=== PATIENT | female | born 1940 | race Caucasian/White ===

== ENCOUNTER 2016-03-14 16:15 | Inpatient (IN) | payer MEDICARE, OTHER ==
[2016-03-14] MEDS ORDERED: OCUVITE1 TA1 PO (17:27)
[2016-03-14] MEDS ORDERED: COLACE 100100 MG/CAP PO (17:27)
[2016-03-14] MEDS ORDERED: ZYPREXA2.5 MG PO ×2 (17:27→17:32)
[2016-03-14] MEDS ORDERED: ASPIRIN E.C. 8181 MG PO (17:28)
[2016-03-14] MEDS ORDERED: ALEVE 220MG220 MG PO (17:28)
[2016-03-14] MEDS ORDERED: FERROUS GL325 MG/TAB PO (17:30)
[2016-03-14] MEDS ORDERED: ZOCOR 10MG10 MG PO (17:30)
[2016-03-14] MEDS ORDERED: MIRALAX PA17 GM/Dose PO (17:31)
[2016-03-14] MEDS ORDERED: NORVASC 5MG5 MG/TAB PO (17:32)
[2016-03-14] MEDS ORDERED: TRAVATAN Z 2.52.5 ML OU (17:33)
[2016-03-14] MEDS ORDERED: INDERAL 20MG20 MG PO (17:35)
[2016-03-14] MEDS ORDERED: ARICEPT10 MG PO (17:35)
[2016-03-14] MEDS ORDERED: ATIVAN 0.50.5 MG/TAB PO (17:36)
[2016-03-14] MEDS ORDERED: NORCO 325 MG-51 TAB PO (17:36)
[2016-03-14] MEDS ORDERED: MYCOSTATIN100000 U/G TP (17:37)
[2016-03-14 17:44] VITALS: BP 169/69; PULSE 91; TEMP 98.4
[2016-03-14 17:46] VITALS: BP 169/69; PULSE 91; TEMP 98.4
[2016-03-14 17:58] LABS: BASO # 0.1 (0.0-0.2); BASO % 0.4 % (0.0-2.0); EOS % 0.2 % (0-4.0); GRAN # 10.4 (1.4-6.5); HEMATOCRIT 38.8 % (37.0-47.0); HEMOGLOBIN 13.2 g/dl (12.5-16.0); LYMPH # 1.2 (1.2-3.4); LYMPH % 9.6 % (20.0-51.0); MEAN CELL VOLUME 85 fl (80.0-100.0); MEAN CORPUSCULAR HEMOGLOBIN 29 pg (27.0-31.0); MEAN CORPUSCULAR HGB CONC 34 g/dl (33.0-37.0); MEAN PLATELET VOLUME 9.3 fl (7.4-10.4); MONO # 0.4 (0.1-0.6); MONO % 3.6 % (1.7-9.3); PLATELET COUNT 237 K/mm3 (130-400); RED BLOOD COUNT 4.55 M/mm3 (4.10-5.30); REDCELL DISTRIBUTION WIDTH-CV 14.7 % (11.5-14.5); WHITE BLOOD COUNT 12.1 K/mm3 (4.8-10.8)
[2016-03-14 18:04] LABS: INR 1.1 (0.8-3.0); PROTHROMBIN TIME 11.8 SECONDS (9.7-12.8)
[2016-03-14 18:11] LABS: ADJUSTED CALCIUM 9.6 mg/dL (8.4-10.2); ALBUMIN 4.1 gm/dL (3.5-5.0); BILIRUBIN,TOTAL 0.9 mg/dL (0.0-1.0); CALCIUM 9.7 mg/dL (8.4-10.2); CREATININE, serum 0.99 mg/dL (0.52-1.25); POTASSIUM 3.8 mmol/L (3.4-5.0); TOTAL PROTEIN 7.3 gm/dL (6.4-8.2)
[2016-03-14 18:51] LABS: PH 6 (5-8); SQUAMOUS EPITHELIAL 0-2 /hpf; URINE APPEARANCE Clear; URINE BACTERIA None Seen /hpf; URINE BILIRUBIN Negative (NEGATIVE); URINE BLOOD 1+ (NEGATIVE); URINE COLOR Yellow; URINE GLUCOSE Negative (NEGATIVE); URINE KETONE 1+ (NEGATIVE); URINE UROBILINOGEN Negative (NEGATIVE); URINE WBC 0-2 /hpf
[2016-03-14 21:16] VITALS: BP 127/72; PULSE 85; TEMP 97.7
[2016-03-15 01:07] VITALS: BP 97/65; PULSE 71; TEMP 97.2
[2016-03-15 04:32] VITALS: BP 124/67; PULSE 79; TEMP 98.5
[2016-03-15 09:06] LABS: CALCIUM 9.1 mg/dL (8.4-10.2); CREATININE, serum 1.27 mg/dL (0.52-1.25); POTASSIUM 3.6 mmol/L (3.4-5.0)
[2016-03-15 09:17] VITALS: BP 118/66; PULSE 80; TEMP 99.3
[2016-03-15 09:44] LABS: BASO % 0.5 % (0.0-2.0); EOS # 0.1 (0.0-0.7); EOS % 1.7 % (0-4.0); GRAN # 5.6 (1.4-6.5); GRAN % 70.6 % (42.2-75.2); LYMPH # 1.7 (1.2-3.4); LYMPH % 21.5 % (20.0-51.0); MEAN CELL VOLUME 89 fl (80.0-100.0); MEAN CORPUSCULAR HGB CONC 33 g/dl (33.0-37.0); MEAN PLATELET VOLUME 9.4 fl (7.4-10.4); MONO # 0.4 (0.1-0.6); MONO % 5.6 % (1.7-9.3); PLATELET COUNT 191 K/mm3 (130-400); RED BLOOD COUNT 3.55 M/mm3 (4.10-5.30); WHITE BLOOD COUNT 7.9 K/mm3 (4.8-10.8)
[2016-03-15 09:50] LABS: HEMATOCRIT 31.4 % (37.0-47.0); HEMOGLOBIN 10.4 g/dl (12.5-16.0); MEAN CORPUSCULAR HEMOGLOBIN 29 pg (27.0-31.0)
[2016-03-15 13:41] VITALS: BP 106/66; PULSE 55; TEMP 98.3
[2016-03-15 17:43] VITALS: BP 141/74; PULSE 88; TEMP 98.3
[2016-03-15 21:56] VITALS: BP 104/62; PULSE 73; TEMP 98.2
[2016-03-16 02:34] VITALS: BP 133/60; PULSE 78; TEMP 98.2
[2016-03-16 04:42] VITALS: BP 135/71; PULSE 87; TEMP 98.2
[2016-03-16 07:21] LABS: BASO # 0.1 (0.0-0.2); BASO % 0.6 % (0.0-2.0); EOS # 0.6 (0.0-0.7); EOS % 7.1 % (0-4.0); GRAN % 60.6 % (42.2-75.2); LYMPH # 2.1 (1.2-3.4); LYMPH % 25.4 % (20.0-51.0); MEAN CELL VOLUME 90 fl (80.0-100.0); MEAN CORPUSCULAR HGB CONC 32 g/dl (33.0-37.0); MEAN PLATELET VOLUME 9.6 fl (7.4-10.4); MONO # 0.5 (0.1-0.6); MONO % 5.8 % (1.7-9.3); PLATELET COUNT 190 K/mm3 (130-400); RED BLOOD COUNT 3.49 M/mm3 (4.10-5.30); REDCELL DISTRIBUTION WIDTH-CV 15.3 % (11.5-14.5); WHITE BLOOD COUNT 8.3 K/mm3 (4.8-10.8)
[2016-03-16 07:39] LABS: CALCIUM 8.8 mg/dL (8.4-10.2); CREATININE, serum 1.15 mg/dL (0.52-1.25); HEMATOCRIT 31.3 % (37.0-47.0); HEMOGLOBIN 10.1 g/dl (12.5-16.0); MEAN CORPUSCULAR HEMOGLOBIN 29 pg (27.0-31.0); POTASSIUM 3.6 mmol/L (3.4-5.0)
[2016-03-16 09:04] VITALS: BP 172/73; PULSE 84; TEMP 98.8
[2016-03-16 14:08] VITALS: BP 120/69; PULSE 79; TEMP 100.8
[2016-03-16 21:48] VITALS: BP 126/70; PULSE 94
[2016-03-17 01:58] VITALS: BP 140/67; PULSE 84; TEMP 98.2
[2016-03-17 04:51] VITALS: BP 120/76; PULSE 87; TEMP 98.2
[2016-03-17 07:17] LABS: BASO % 0.4 % (0.0-2.0); EOS % 0.1 % (0-4.0); LYMPH # 1.2 (1.2-3.4); LYMPH % 14.9 % (20.0-51.0); MEAN CELL VOLUME 88 fl (80.0-100.0); MEAN CORPUSCULAR HGB CONC 33 g/dl (33.0-37.0); MEAN PLATELET VOLUME 9.5 fl (7.4-10.4); MONO # 0.6 (0.1-0.6); MONO % 7.1 % (1.7-9.3); PLATELET COUNT 176 K/mm3 (130-400); RED BLOOD COUNT 3.18 M/mm3 (4.10-5.30); REDCELL DISTRIBUTION WIDTH-CV 14.4 % (11.5-14.5); WHITE BLOOD COUNT 7.8 K/mm3 (4.8-10.8)
[2016-03-17 07:33] LABS: HEMATOCRIT 28.1 % (37.0-47.0); HEMOGLOBIN 9.3 g/dl (12.5-16.0); MEAN CORPUSCULAR HEMOGLOBIN 29 pg (27.0-31.0)
[2016-03-17 07:41] LABS: CALCIUM 8.4 mg/dL (8.4-10.2); CREATININE, serum 0.89 mg/dL (0.52-1.25); POTASSIUM 3.6 mmol/L (3.4-5.0)
[2016-03-17 09:21] VITALS: BP 136/69; PULSE 91; TEMP 98.6
[2016-03-17 13:51] VITALS: BP 129/66; PULSE 87; TEMP 98.3
[2016-03-17 17:34] VITALS: BP 119/62; PULSE 83; TEMP 98.1
[2016-03-17 22:04] VITALS: BP 138/68; PULSE 88; TEMP 99.2
[2016-03-18 02:15] VITALS: BP 138/62; PULSE 87; TEMP 99.5
[2016-03-18 06:23] VITALS: BP 128/67; PULSE 79; TEMP 99
[2016-03-18 07:22] LABS: BASO % 0.4 % (0.0-2.0); EOS # 0.4 (0.0-0.7); EOS % 5.8 % (0-4.0); GRAN # 4.1 (1.4-6.5); LYMPH # 2.2 (1.2-3.4); LYMPH % 29.7 % (20.0-51.0); MEAN CELL VOLUME 90 fl (80.0-100.0); MEAN CORPUSCULAR HGB CONC 32 g/dl (33.0-37.0); MEAN PLATELET VOLUME 9.8 fl (7.4-10.4); MONO # 0.6 (0.1-0.6); MONO % 7.7 % (1.7-9.3); PLATELET COUNT 172 K/mm3 (130-400); REDCELL DISTRIBUTION WIDTH-CV 14.7 % (11.5-14.5); WHITE BLOOD COUNT 7.4 K/mm3 (4.8-10.8)
[2016-03-18 07:27] LABS: HEMATOCRIT 26.2 % (37.0-47.0); HEMOGLOBIN 8.3 g/dl (12.5-16.0); MEAN CORPUSCULAR HEMOGLOBIN 29 pg (27.0-31.0)
[2016-03-18 07:32] LABS: CALCIUM 8.3 mg/dL (8.4-10.2); CREATININE, serum 0.9 mg/dL (0.52-1.25); POTASSIUM 3.8 mmol/L (3.4-5.0)
[2016-03-18 10:09] VITALS: BP 150/80; PULSE 95; TEMP 98.6
[2016-03-18] MEDS ORDERED: XARELTO10 MG PO (12:51)
[2016-03-18 13:20] VITALS: BP 127/62; PULSE 92; TEMP 99.8
[2016-03-18 14:01] VITALS: BP 127/62; PULSE 92; TEMP 99.8
== END 2016-03-18 15:25 | DRG 483 ==
LOC: SURG 16:15
PROVIDERS: Internal Medicine; Orthopaedic Surgery; Physician Assistant
PROC: 0RRK00Z Replacement of Left Shoulder Joint with Reverse Ball and Socket Synthetic Substitute, Open Approach (ICD-10-PCS; principal; 2016-03-16 16:00)
DX: S42.242A 4-part fracture of surgical neck of left humerus, initial encounter for closed fracture (principal); S82.142A Displaced bicondylar fracture of left tibia, initial encounter for closed fracture; N17.9 Acute kidney failure, unspecified; Z66 Do not resuscitate; W18.30XA Fall on same level, unspecified, initial encounter; I10 Essential (primary) hypertension; F03.90 Unspecified dementia, unspecified severity, without behavioral disturbance, psychotic disturbance, mood disturbance, and anxiety; H35.52 Pigmentary retinal dystrophy
CPT/HCPCS: 99223-AI; 99232-AI; 99239; A4565; A9284; C1713; C1776; J0690; J1100; J1650; J2270; J2405; J2704; J2765; J3010; J7030; J7120